=== PATIENT | male | born 1960 | race Caucasian/White ===

== ENCOUNTER 2016-07-05 09:08 | Emergency (ER) | payer SELFPAY ==
[~2016-07-05] VITALS: Ht 180.3 cm; Wt 95.3 kg
[2016-07-05 09:12] VITALS: BP 139/91
== END 2016-07-05 09:38 | disposition home or self-care (01) ==
LOC: ER 09:10
DX: J20.9 Acute bronchitis, unspecified (principal); F17.200 Nicotine dependence, unspecified, uncomplicated
CPT/HCPCS: 99283; A4606; Z7610

== ENCOUNTER 2017-06-20 14:35 | Emergency (ER) | payer OTHER ==
[~2017-06-20] VITALS: Ht 180.3 cm; Wt 93.0 kg
--- NOTE | 2017-06-20 14:35 | NUR ---
ON & OFF TESTICULAR PAIN AND SWELLING X 2 WEEKS,NO TRAUMA
--- NOTE | 2017-06-20 18:12 | NUR ---
Patient discharged to home in stable condition. Written and verbal after care instructions given. Patient verbalizes understanding of instruction.
[2017-06-20 18:13] VITALS: BP 130/82
== END 2017-06-20 18:14 | disposition home or self-care (01) ==
LOC: ER 14:36
DX: I86.1 Scrotal varices (principal); N43.3 Hydrocele, unspecified; N45.1 Epididymitis; F17.200 Nicotine dependence, unspecified, uncomplicated
CPT/HCPCS: 76870; 99284; A4606; Z7610

== ENCOUNTER 2017-08-14 19:24 | Emergency (ER) | payer OTHER ==
[~2017-08-14] VITALS: Ht 180.3 cm; Wt 79.4 kg
--- NOTE | 2017-08-14 20:55 | NUR ---
PT BB SELF WITH C/O left flank pain x 2 days. Worse with coughing. PT STATES PAIN IN THE LLB WITH PAIN LEVL /. PT IS AAOX4. RESP EVEN AND UNLABORED. NO S/S OF ACUTE DISTRESS NOTED. VSS. SKIN WNL AND WARM TO TOUCH. PT GOWNED AND PLACED ON MONITOR AND POX. PT SAFETY AND COMFORT MEASURES IN PLACE. AWAITING MD FOR EVAL.
--- NOTE | 2017-08-14 20:58 | NUR ---
EMT BEDSIDE FOR EKG
[2017-08-14] MEDS ORDERED: ONDANSETRON HCL/PF 4 MG/2 ML VIAL ONE (20:59)
[2017-08-14] MEDS ORDERED: MORPHINE SULFATE INJ 2 MG/ML DISP.SYRIN IV ONE (21:00)
[2017-08-14] MEDS ORDERED: MORPHINE SULFATE INJ 4 MG/ML DISP.SYRIN ONE (21:00)
[2017-08-14] MEDS ORDERED: ONDANSETRON HCL/PF 4 MG/2 ML VIAL IVP ONE (21:00)
[2017-08-14] MEDS ORDERED: IV NS 0.9% 500 ML BAG IV ONE (21:00)
[2017-08-14 21:02] LABS: BASOPHILS # (AUTO) 0.3 /CMM (0.0-0.2); BASOPHILS % (AUTO) 2.7 % (0.0-2.0); EOSINOPHILS # (AUTO) 0.1 /CMM (0.0-0.7); EOSINOPHILS % (AUTO) 0.5 % (0.0-6.0); HEMATOCRIT 42 % (39-51); HEMOGLOBIN 13.6 g/dL (13.5-17.5); LYMPHOCYTES # (AUTO) 1.2 /CMM (0.8-4.8); LYMPHOCYTES % (AUTO) 10.7 % (20.0-44.0); MEAN CORPUSCULAR HEMOGLOBIN 24 PG (26.0-33.0); MEAN CORPUSCULAR HGB CONC 32 g/dl (31.0-36.0); MEAN CORPUSCULAR VOLUME 73 fL (80-96); MONOCYTES # (AUTO) 0.9 /CMM (0.1-1.30); NEUTROPHILS # (AUTO) 8.6 /CMM (1.8-8.9); NEUTROPHILS % (AUTO) 78.1 % (43.0-81.0); PLATELET COUNT (AUTO) 277 /CMM (150-450); RDW COEFFICIENT OF VARIATION 14.2 (11.5-15.0); WHITE BLOOD COUNT (AUTO) 11.1 K/uL (4.3-11.0)
[2017-08-14 21:08] LABS: APPEARANCE,URINE Clear (CLEAR); BILIRUBIN,URINE Negative (NEGATIVE); BLOOD, URINE Trace-intact Ery/uL (NEGATIVE); COLOR,URINE Yellow (YELLOW); KETONES,URINE Negative (NEGATIVE); LEUKOCYTE ESTERASE ,URINE Negative (NEGATIVE); NITRITE, URINE Negative (NEGATIVE); PROTEIN,URINE Negative (NEGATIVE); UGLUCOSE Negative (NEGATIVE)
[2017-08-14 21:12] LABS: CALCIUM, SERUM 9.1 mg/dL (8.5-10.1); CARBON DIOXIDE 30 mmol/L (21-32); CHLORIDE 101 mmol/L (98-107); CREATININE 1.3 mg/dL (0.6-1.3); GLUCOSE 107 mg/dL (74-106); POTASSIUM 3.5 mmol/L (3.5-5.1); SODIUM SERUM 136 mmol/L (136-145); UREA NITROGEN, BLOOD 10 mg/dL (7-18)
--- NOTE | 2017-08-14 21:13 | NUR ---
PT TO CT.
[2017-08-14 21:18] LABS: ALANINE AMINOTRANSFERASE 82 U/L (12-78); ALBUMIN 3.6 g/dL (3.4-5.0); ALKALINE PHOSPHATASE 54 U/L (46-116); ASPARTATE AMINOTRANSFERASE 56 U/L (15-37); BILIRUBIN,DIRECT 0.2 mg/dL (0.0-0.2); BILIRUBIN,TOTAL 0.6 mg/dL (0.2-1.0); LIPASE 149 U/L (73-393); TOTAL PROTEIN, SERUM 7.6 g/dL (6.4-8.2)
[2017-08-14 21:20] LABS: TROPONIN I < 0.017 ng/mL (0.00-0.056)
[2017-08-14 21:23] LABS: BACTERIA,URINE Rare /HPF (None Seen); SQUAMOUS EPITHELIAL CELL,UR Few /HPF (None Seen); WBC,URINE NONE SEEN /HPF (0-3)
--- NOTE | 2017-08-14 21:24 | NUR ---
PT BACK FROM CT.
[2017-08-14] MEDS ORDERED: AZITHROMYCIN 250 MG TABLET PO ONE (22:30)
[2017-08-14] MEDS ORDERED: CEFTRIAXONE 1 G in IV D5W 50 ML IV ONE (22:30)
[2017-08-14] MEDS ORDERED: AZITHROMYCIN 250 MG TABLET ONE (22:41)
[2017-08-14] MEDS ORDERED: CEFTRIAXONE 1 G VIAL ONE (22:41)
--- NOTE | 2017-08-14 23:45 | NUR ---
Patient discharged to home in stable condition. Written and verbal after care instructions along with Rx given. Patient verbalizes understanding of instruction.IV removed. Catheter intact and site benign. Pressure and 4x4 applied to site. No bleeding noted. VSS upon discharge. pt ambulated with steady gait out of ER.
[2017-08-14 23:46] VITALS: BP 118/72
== END 2017-08-14 23:49 | disposition home or self-care (01) ==
LOC: ER 19:25
DX: J18.9 Pneumonia, unspecified organism (principal); F17.200 Nicotine dependence, unspecified, uncomplicated
CPT/HCPCS: 36415; 71045-TC; 80048-TC; 80076-TC; 81000-TC; 83690-TC; 84484-TC; 85025-TC; 85730-TC; A4606; J0696; J2270; J2405; J7040; J7060; Z7610

== ENCOUNTER 2019-09-05 18:52 | Inpatient (IN) | payer MEDICAID, OTHER ==
[~2019-09-05] VITALS: Ht 180.3 cm; Wt 95.3 kg
--- NOTE | 2019-09-05 19:00 | NUR ---
BIB ra c/o wheezing and sob. Patient a/ox4, tachypneic, placed on o2 at 6lpm via nc with spo2 of 100%. Patient attached to the alarm security or surveillance monitor. Sitting at the edge of the bed, wheezing and coughing. Dr. Cavazos at bedside for eval.
[2019-09-05] MEDS ORDERED: IV NS 0.9% 1,000 ML IV ONE (19:01)
[2019-09-05] MEDS ORDERED: Magnesium 1GM/D5W 100ML PREMIX 200 ML IV ONE (19:01)
[2019-09-05] MEDS ORDERED: methylPREDNISolone SOD SUCC 125 MG/2ML VIAL ONE ×2 (19:05→19:09)
[2019-09-05] MEDS ORDERED: Magnesium 1GM/D5W 100ML PREMIX 100 ML IV ONE (19:05)
[2019-09-05 19:12] LABS: BASOPHILS # (AUTO) 0.1 /CMM (0.0-0.2); BASOPHILS % (AUTO) 1.3 % (0.0-2.0); EOSINOPHILS % (AUTO) 9.8 % (0.0-6.0); HEMATOCRIT 44 % (39-51); HEMOGLOBIN 13.6 g/dL (13.5-17.5); LYMPHOCYTES # (AUTO) 2.5 /CMM (0.8-4.8); LYMPHOCYTES % (AUTO) 35.9 % (20.0-44.0); MEAN CORPUSCULAR HGB CONC 31 g/dl (31.0-36.0); MEAN CORPUSCULAR VOLUME 74 fL (80-96); MONOCYTES # (AUTO) 0.6 /CMM (0.1-1.30); MONOCYTES % (AUTO) 8.7 % (2.0-12.0); NEUTROPHILS % (AUTO) 44.3 % (43.0-81.0); PLATELET COUNT (AUTO) 303 /CMM (150-450); WHITE BLOOD COUNT (AUTO) 6.9 K/uL (4.3-11.0)
[2019-09-05] MEDS ORDERED: ACETAMINOPHEN ES 500 MG TABLET ONE (19:13)
--- NOTE | 2019-09-05 19:25 | NUR ---
Don major in ED - 09/05/19 at 1931 by [facility] AT BEDSIDE FOR XRAY
[2019-09-05 19:26] LABS: CALCIUM, SERUM 8.9 mg/dL (8.5-10.1); CARBON DIOXIDE 25 mmol/L (21-32); CHLORIDE 107 mmol/L (98-107); CREATININE 1.2 mg/dL (0.6-1.3); GLUCOSE 114 mg/dL (74-106); POTASSIUM 4.5 mmol/L (3.5-5.1); SODIUM SERUM 141 mmol/L (136-145); UREA NITROGEN, BLOOD 9 mg/dL (7-18)
--- NOTE | 2019-09-05 19:28 | NUR ---
Medications given, blood drawn and sent to lab. Patient stated he feels a better. lab support service tech at bedside for chest x-ray.
[2019-09-05] MEDS ORDERED: ALBUTEROL SULFATE 8 GM HFA.AER.AD IH ONE (19:30)
[2019-09-05] MEDS ORDERED: ACETAMINOPHEN ES 500 MG TABLET PO ONE (19:30)
[2019-09-05] MEDS ORDERED: methylPREDNISolone SOD SUCC 125 MG/2ML VIAL IV ONE (19:30)
--- NOTE | 2019-09-05 19:30 | NUR ---
REC'D REPORT FROM LV HINOJOSA FOR GRACIA
--- NOTE | 2019-09-05 19:31 | NUR ---
Patient resting, no distress noted. Endorsed to Mayi AWAN.
[2019-09-05 19:39] LABS: ALANINE AMINOTRANSFERASE 40 U/L (12-78); ALBUMIN 4.3 g/dL (3.4-5.0); ALKALINE PHOSPHATASE 55 U/L (46-116); ASPARTATE AMINOTRANSFERASE 44 U/L (15-37); B-TYPE NATRIURETIC PEPTIDE 76 PG/ML (0-125); BILIRUBIN,DIRECT 0.1 mg/dL (0.0-0.2); BILIRUBIN,TOTAL 0.2 mg/dL (0.2-1.0); TOTAL PROTEIN, SERUM 7.7 g/dL (6.4-8.2)
[2019-09-05 20:26] LABS: EOSINOPHILS % (MANUAL) 6 % (0-4); LYMPHOCYTES % (MANUAL) 45 % (16-48); MONOCYTES % (MANUAL) 5 % (0-11.0); NEUTROPHILS % (MANUAL) 44 (42-76)
--- NOTE | 2019-09-05 20:47 | NUR ---
PT STATES HE IS FEELING BETTER. NOTED BILATERAL WHEEZING
--- NOTE | 2019-09-05 21:10 | NUR ---
PT PROVIDED WITH FOOD AND JUICE PER REQUEST
--- NOTE | 2019-09-05 21:50 | NUR ---
PAGED DR. BRASWELL
--- NOTE | 2019-09-05 21:55 | NUR ---
MITALI DOC ON PHONE WITH DR. BRASWELL
--- NOTE | 2019-09-05 21:56 | NUR ---
CALLED SUP FOR MS BED
--- NOTE | 2019-09-05 22:16 | NUR ---
REPORT GIVEN TO LV ALLRED FOR GRACIA
[2019-09-05] MEDS ORDERED: MAGNESIUM HYDROXIDE 30 ML UDC PO PRN (22:30)
[2019-09-05] MEDS ORDERED: MAG HYDROX/AL HYDROX/SIMETH 30 ML UDC PO PRN (22:30)
[2019-09-05] MEDS ORDERED: HYDROCODONE/APAP 5/325MG 1 EACH TABLET PO PRN (22:30)
[2019-09-05] MEDS ORDERED: IPRATROPIUM NEB FS 0.5 MG/2.5 ML AMPUL.NEB NEB PRN (22:30)
[2019-09-05] MEDS ORDERED: ZOLPIDEM TARTRATE 5 MG TABLET PO PRN (22:30)
[2019-09-05] MEDS ORDERED: ALBUTEROL FS 2.5 MG/0.5 ML VIAL.NEB NEB PRN (22:30)
[2019-09-05] MEDS ORDERED: ONDANSETRON HCL/PF 4 MG/2 ML VIAL IVP PRN (22:30)
[2019-09-05] MEDS ORDERED: Z GUARD REMEDY 2 OZ OINT TP PRN (22:30)
--- NOTE | 2019-09-05 22:40 | NUR ---
REMOVED PT FROM NASAL CANULA, PT 96-97% ON ROOM AIR
--- NOTE | 2019-09-05 22:45 | NUR ---
MOTORCOACH OPERATOR NOTES RECEIVED PATIENT FROM ED. PATIENT IS A/0 X4. IV ON LEFT HAND #20G IS PATENT AND INTACT. PLACED ON 3L NASAL CANULA, NO SOB/ ACUTE RESPIRATORY DISTRESS NOTED. ACQUAINTED TO ROOM, CALL LIGHT WITHIN REACH. BED IS IN LOWEST LOCKED POSITION WITH SIDE RAILS UP X2, SEMI FOWLERS. WILL CONTINUE TO MONITOR.
--- NOTE | 2019-09-05 22:50 | NUR ---
PT TRANSFERRED PER ACLS PROTOCOL TO TELE BED
[2019-09-05] MEDS: methylPREDNISolone SOD SUCC 125 MG/2ML VIAL IV SCH (23:15)
[2019-09-06] MEDS: ACETAMINOPHEN 325 MG TABLET PO PRN (00:28)
--- NOTE | 2019-09-06 00:28 | NUR ---
patient has /o orellana rated 3/10 tyelneol administered per patient request as ordered.
[2019-09-06] MEDS ORDERED: CODEINE/PROMETHAZINE HCL 5 ML UDC ONE ×2 (00:40→01:40)
--- NOTE | 2019-09-06 01:10 | NUR ---
BROKER NOTES PATIENT TRANSFERRED TO [place] [id number], ROOM 108 FOR COVID 19 RULE OUT. VITAL SIGNS STABLE. ON 3L NASAL CANULA, NO SOB/ ACUTE RESPIRATORY DISTRESS NOTED. NO COMPLAINTS OF PAIN. GAVE REPORT TO NAINA FOR GRACIA.
--- NOTE | 2019-09-06 01:10 | NUR ---
DATA STEWARD NOTE RECEIVED PT FROM [facility]. PT IS DX SOB, CHEST PAIN ALSO COVID 19 R/O. PLACED HIM IN ISOLATION, ISOLATION PRECAUTIONS TAKEN. PT IS A/O X 4, NO SOB, NO DISTRESS OR DISCOMFORT NOTED. DENIES PAIN. SL LT HAND #20 INTACT AND PATENT. NO FEVER AT THIS TIME. VSS. ON TELE SR HR 84. SIDE RAILS UP X 3 AND CALL LIGHT WITHIN REACH. CONTINUE TO MONITOR HIM.
[2019-09-06 01:30] VITALS: BP 137/87
[2019-09-06] MEDS ORDERED: AZITHROMYCIN 500 MG VIAL ONE (01:35)
--- NOTE | 2019-09-06 01:45 | NUR ---
CHIEF HUMAN RESOURCES OFFICER NOTE SMITH VIRUS NASAL SPECIMEN COLLECTED AND SENT TO LAB.
[2019-09-06] MEDS: AZITHROMYCIN 500 MG in IV D5W 250 ML IV SCH (01:48)
[2019-09-06] MEDS: CODEINE/PROMETHAZINE HCL 5 ML UDC PO PRN ×2 (01:49→12:48)
--- NOTE | 2019-09-06 01:49 | NUR ---
BREAKER TABLE WORKER NOTE ZITHROMAX 500 MG IV STARTED ORDERED. ALSO PHENERGAN 15 MG PO GIVEN.
[2019-09-06 01:58] LABS: C-REACTIVE PROTEIN 1.5 mg/dL (0.0-0.9)
[2019-09-06 01:59] LABS: D-DIMER 0.31 mg/L(FEU (0.17-0.50)
--- NOTE | 2019-09-06 02:00 | NUR ---
ENVIRONMENTAL LABORATORY TECHNICIAN NOTE LT HAND IV SITE NOTED LEAKING. DC'D LINE AND SECURED THE SITE WITH 2X2 GAUZE. NEW LINE INSERTED IN RT HAND #20 GAUZE BY TAYLOR CHARGE NURSE. RESUMED IV ATB ORDERED NO S/S OF INFILTRATION NOTED.
[2019-09-06 04:00] VITALS: BP 114/70
[2019-09-06 06:34] LABS: CALCIUM, SERUM 8.9 mg/dL (8.5-10.1); CREATININE 1.1 mg/dL (0.6-1.3); PHOSPHORUS 1.3 mg/dL (2.5-4.9); POTASSIUM 5.4 mmol/L (3.5-5.1)
[2019-09-06 06:36] LABS: THYROID STIMULATING HORMONE 0.309 uIU/mL (0.358-3.74)
[2019-09-06] MEDS: methylPREDNISolone SOD SUCC 125 MG/2ML VIAL IV SCH ×3 (06:41→18:34)
--- NOTE | 2019-09-06 06:43 | NUR ---
METAL COATER NOTE PT IN BED ASLEEP, NO DISTRESS OR DISCOMFORT NOTED. DENIES PAIN. ON TELE SR 80. REMAIN IN ISOLATION. SIDE RAILS UP X 2 AND CALL LIGHT WITHIN REACH. WILL ENDORSE TO DAY SHIFT NURSE FOR CONTINUE TO CARE.
[2019-09-06 07:16] LABS: BASOPHILS % (AUTO) 0.3 % (0.0-2.0); EOSINOPHILS % (AUTO) 0.1 % (0.0-6.0); HEMATOCRIT 42 % (39-51); LYMPHOCYTES # (AUTO) 0.6 /CMM (0.8-4.8); MEAN CORPUSCULAR HGB CONC 31 g/dl (31.0-36.0); MEAN CORPUSCULAR VOLUME 74 fL (80-96); MONOCYTES # (AUTO) 0.1 /CMM (0.1-1.30); MONOCYTES % (AUTO) 1.2 % (2.0-12.0); NEUTROPHILS # (AUTO) 6.6 /CMM (1.8-8.9); NEUTROPHILS % (AUTO) 90.4 % (43.0-81.0); PLATELET COUNT (AUTO) 200 /CMM (150-450); RED BLOOD CELL COUNT(AUTO) 5.72 MIL/uL (4.5-6.0); WHITE BLOOD COUNT (AUTO) 7.4 K/uL (4.3-11.0)
[2019-09-06 08:00] VITALS: BP 102/55
[2019-09-06 09:30] LABS: BAND % (MANUAL) 2 % (0.0-5.0); LYMPHOCYTES % (MANUAL) 7 % (16-48); MONOCYTES % (MANUAL) 1 % (0-11.0); NEUTROPHILS % (MANUAL) 90 (42-76)
[2019-09-06] MEDS: NEUTRA PHOS 1 POWD.PACKET PO SCH ×2 (10:38→18:34)
[2019-09-06] MEDS: IV NS 0.9% 1,000 ML IV PRN ×2 (11:22→18:40)
[2019-09-06] MEDS ORDERED: MAGNESIUM CITRATE 296 ML BOTTLE PO ONE (11:30)
[2019-09-06] MEDS ORDERED: DOCUSATE SODIUM 100 MG CAPSULE PO SCH (11:30)
[2019-09-06] MEDS ORDERED: POLYETHYLENE GLYCOL 3350 17 GM POWD.PACK PO PRN (11:30)
[2019-09-06] MEDS ORDERED: ALBUTEROL SULFATE INH 18 GM HFA.AER.AD IH PRN (11:30)
[2019-09-06 12:00] VITALS: BP 124/80
[2019-09-06 16:00] VITALS: BP 129/84
--- NOTE | 2019-09-06 19:15 | NUR ---
STEAM FITTER HELPER OPENING NOTES RECEIVED PT ON BED AWAKE A/OX4 STILL COUGHING, ON O2 VIA NC @ 3L O2 SAT 99%, WHEEZING ON ENTIRE LUNGS STILL NOTED, ON TELE MONITOR SR 90'S WITH RHAND IV # 20 HOOKED TO NS 1L @125ML/HR INFUSING WELL NO INFILTRATION NOTED, SAFETY MEASURED MAINTAIN BED ON LOWEST POSSIBLE POSITION CALL LIGHT WITHIN REACH, SIDE RAILS X2 WILL CONT. TO MONITOR
[2019-09-06 20:00] VITALS: BP 128/77
[2019-09-07] VITALS: BP 119/76
[2019-09-07] MEDS: AZITHROMYCIN 500 MG in IV D5W 250 ML IV SCH (00:04)
[2019-09-07] MEDS: methylPREDNISolone SOD SUCC 125 MG/2ML VIAL IV SCH ×2 (00:04→05:40)
[2019-09-07] MEDS: ACETAMINOPHEN 325 MG TABLET PO PRN (00:18)
[2019-09-07] MEDS: IV NS 0.9% 1,000 ML IV PRN (03:30)
[2019-09-07 04:00] VITALS: BP 123/86
[2019-09-07 06:10] LABS: BASOPHILS % (AUTO) 0.1 % (0.0-2.0); HEMATOCRIT 42 % (39-51); LYMPHOCYTES % (AUTO) 6.5 % (20.0-44.0); MEAN CORPUSCULAR HGB CONC 31 g/dl (31.0-36.0); MEAN CORPUSCULAR VOLUME 73 fL (80-96); MONOCYTES # (AUTO) 0.2 /CMM (0.1-1.30); MONOCYTES % (AUTO) 1.5 % (2.0-12.0); NEUTROPHILS # (AUTO) 14.4 /CMM (1.8-8.9); NEUTROPHILS % (AUTO) 91.9 % (43.0-81.0); PLATELET COUNT (AUTO) 251 /CMM (150-450); RED BLOOD CELL COUNT(AUTO) 5.74 MIL/uL (4.5-6.0); WHITE BLOOD COUNT (AUTO) 15.7 K/uL (4.3-11.0)
[2019-09-07 06:16] LABS: ALBUMIN 3.8 g/dL (3.4-5.0); BILIRUBIN,TOTAL 0.3 mg/dL (0.2-1.0); CREATININE 1.2 mg/dL (0.6-1.3); MAGNESIUM 1.9 mg/dL (1.8-2.4); POTASSIUM 4.9 mmol/L (3.5-5.1)
--- NOTE | 2019-09-07 06:47 | NUR ---
RN CLOSING NOTES PT ON STABLE CONDITION NO SIGN AND SYMPTOMS OF RESPIRATORY DISTRESS, O2 SAT >92% @ RA, NO SIGNIFICANT CHANGES ON CONDITION NOTED, TELE MONITOR WITH READING SR 70'S, ISOLATION STATUS MAINTAINED AND OBSERVED, SAFETY MEASURE MAINTAINED SIDE RAILS UP X 2 CALL LIGHT WITHIN REACH BED AT LOWEST POSSIBLE POSITION AND LOCKED ALL NEEDS ATTENDED WILL ENDORSED TO AM SHIFT NURSE
[2019-09-07 08:00] VITALS: BP 148/67
--- NOTE | 2019-09-07 08:00 | NUR ---
SELF RISING FLOUR MIXER OPENING NOTES Received Patient awake and resting in bed. A/O x 4. VS stable with no acute distress. Breathing even and unlabored on room air with no respiratory distress. Denies pain. Telemonitor in place and patent reading SR with HR-91. 20g PIV on Right Hand clean, intact, patent and flushing well with NS infusing at 125ml/hr. Isolation precautions in place. Safety precautions in place. Bed locked and set to lowest position with side rails x 2 up. All needs rendered at this time. Call light within reach. Will continue to monitor.
[2019-09-07 08:10] LABS: LYMPHOCYTES % (MANUAL) 6 % (16-48); MONOCYTES % (MANUAL) 5 % (0-11.0); NEUTROPHILS % (MANUAL) 89 (42-76)
[2019-09-07] MEDS ORDERED: ALBU2.5V13 NEB (08:43)
[2019-09-07] MEDS ORDERED: AZIT250T13 PO (08:43)
[2019-09-07] MEDS ORDERED: PRED50TA PO (08:43)
[2019-09-07] MEDS ORDERED: ALBU18HF2 INH (08:45)
[2019-09-07 09:42] VITALS: BP 148/67
--- NOTE | 2019-09-07 11:15 | NUR ---
FOLEY ARTIST NOTES Patient discharged for home at this time. Patient in stable condition. VS stable with no acute distress. Breathing even and unlabored on room air with no respiratory distress. Denies pain. Skin intact. Removed PIV on right hand clean and intact. Medication reconciliation and discharge orders reviewed and explained to Patient. Patient verbalized understanding. All belongings with Patient. Escorted Patient to the Lobby for safety.
== END 2019-09-07 11:10 | disposition home or self-care (01) | DRG 145 ==
LOC: ER 18:58 → MED 22:10 → TELE 09-06 00:15 → TELE1 09-06 01:14
PROVIDERS: ATTEND Internal Medicine
DX: J20.9 Acute bronchitis, unspecified (principal); E87.5 Hyperkalemia; J45.901 Unspecified asthma with (acute) exacerbation; F14.90 Cocaine use, unspecified, uncomplicated; F17.210 Nicotine dependence, cigarettes, uncomplicated; R73.9 Hyperglycemia, unspecified; D72.810 Lymphocytopenia; M79.10 Myalgia, unspecified site
CPT/HCPCS: 36415; 71045-TC; 80048-TC; 80053-TC; 80061-TC; 80076-TC; 82550-TC; 82728-TC; 83615-TC; 83735-TC; 83880; 84100-TC; 84439-TC; 84443-TC; 84484-TC; 85025-TC; 85378-TC; 85385-TC; 85652-TC; 86140-TC; 87081-TC; G0378; J0456; J2930; J3475; J7030; J7050; J7060

== ENCOUNTER 2021-12-26 14:12 | Emergency (ER) | payer MEDICARE, OTHER, BC ==
[~2021-12-26] VITALS: Ht 180.3 cm; Wt 79.4 kg
[~2021-12-26 14:12] MED LIST: ALBU18HF2 INH; ALBU2.5V13 NEB; AZIT250T13 PO; PRED50TA PO
[2021-12-26 14:32] VITALS: BP 119/92
[2021-12-26] MEDS ORDERED: KETOROLAC TROMETHAMINE INJ 30 MG/ML VIAL ONE (15:43)
[2021-12-26] MEDS ORDERED: ACETAMINOPHEN ES 500 MG TABLET ONE (15:43)
[2021-12-26] MEDS: KETOROLAC TROMETHAMINE INJ 60 MG/2 ML VIAL IM ONE (15:50)
[2021-12-26] MEDS: ACETAMINOPHEN 325 MG TABLET PO ONE (15:51)
[2021-12-26] MEDS ORDERED: GABA-532 PO (16:27)
[2021-12-26] MEDS ORDERED: HYDR-4303 PO (16:27)
[2021-12-26] MEDS ORDERED: NAPR-1009 PO (16:27)
--- NOTE | 2021-12-26 16:35 | NUR ---
Patient discharged to home in stable condition. Written and verbal after care instructions given. Patient verbalizes understanding of instruction.
== END 2021-12-26 16:35 | disposition home or self-care (01) ==
LOC: ER 14:26
DX: M54.12 Radiculopathy, cervical region (principal); M50.322 Other cervical disc degeneration at C5-C6 level; R20.2 Paresthesia of skin; Z91.018 Allergy to other foods; F17.200 Nicotine dependence, unspecified, uncomplicated; Z79.899 Other long term (current) drug therapy
CPT/HCPCS: 99284; 96372; 72050; 73030; J1885

== ENCOUNTER 2022-09-30 12:38 | Emergency (ER) | payer BC, OTHER ==
[~2022-09-30] VITALS: Ht 177.8 cm; Wt 81.6 kg
[~2022-09-30 12:38] MED LIST changes: +GABA-532 PO; +HYDR-4303 PO; +NAPR-1009 PO
[2022-09-30 13:01] VITALS: BP 147/95
[2022-09-30] MEDS ORDERED: HYDROCODONE/APAP 5/325MG TABLET ONE (13:57)
[2022-09-30] MEDS ORDERED: HYDROCODONE/APAP 5/325MG TABLET PO ONE (14:00)
--- NOTE | 2022-09-30 14:01 | NUR ---
Pt NO longer in room- Eloped prior to giving ACI
== END 2022-09-30 14:02 | disposition home or self-care (01) ==
LOC: ER 12:48
DX: M54.12 Radiculopathy, cervical region (principal); R20.2 Paresthesia of skin; F17.200 Nicotine dependence, unspecified, uncomplicated; Z79.899 Other long term (current) drug therapy